=== PATIENT | female | born 1970 | race Caucasian/White ===

== ENCOUNTER 2021-04-21 07:22 | Emergency (ER) | payer MEDICAID ==
[~2021-04-21] VITALS: Ht 170.2 cm; Wt 100.5 kg
[2021-04-21 07:43] VITALS: BP 147/100
[2021-04-21] MEDS ORDERED: LIDOCAINE 1%/EPI 1:200,000/PF 10 ML VIAL SQ ONE (08:30)
[2021-04-21] MEDS ORDERED: SULFAMETHOX/TRIMETH DS 800-160 MG/TABLET PO ONE (09:45)
== END 2021-04-21 10:25 | disposition home or self-care (01) ==
LOC: EMS 07:22
DX: N76.4 Abscess of vulva (principal); E78.00 Pure hypercholesterolemia, unspecified; F17.210 Nicotine dependence, cigarettes, uncomplicated
CPT/HCPCS: 56405; 99284; J3490

== ENCOUNTER 2021-04-30 02:43 | Emergency (ER) | payer MEDICAID ==
[~2021-04-30] VITALS: Ht 170.2 cm; Wt 100.5 kg
[2021-04-30] MEDS ORDERED: DiphenhydrAMINE HCL 50 MG/ML VIAL IVP ONE (07:00)
[2021-04-30] MEDS ORDERED: SODIUM CHLORIDE 0.9% 1,000 ML IV ONE (07:00)
[2021-04-30 07:48] LABS: BASOPHILS % (AUTO) 0.2 % (0.0-2.0); EOSINOPHILS % (AUTO) 7.9 % (1.0-6.0); HEMATOCRIT 36.3 % (36-46); HEMOGLOBIN 12.3 g/dL (12.0-16.0); LYMPHOCYTES % (AUTO) 28.5 % (22.0-44.0); MEAN CORPUSCULAR HEMOGLOBIN 28.9 pg (26.0-34.0); MEAN CORPUSCULAR VOLUME 85 fL (80-100); MONOCYTES # (AUTO) 0.3 K/uL (0.1-1.0); MONOCYTES % (AUTO) 8.5 % (2.0-9.0); NEUTROPHILS % (AUTO) 54.9 % (40.0-70.0); PLATELET COUNT (AUTO) 155 K/uL (150-450); RED BLOOD CELL COUNT(AUTO) 4.28 MIL/uL (4.00-5.20)
[2021-04-30 07:56] LABS: CALCIUM, TOTAL 8.6 mg/dL (8.8-10.5); CREATININE 1.17 mg/dL (0.60-1.30); POTASSIUM 3.8 mmol/L (3.5-5.1)
[2021-04-30 08:03] LABS: ALBUMIN 3.4 g/dL (3.4-5.0); BILIRUBIN,TOTAL 0.2 mg/dL (0.1-1.0); TOTAL PROTEIN, SERUM 6.7 g/dL (6.4-8.2)
[2021-04-30 08:04] LABS: LACTIC ACID 0.8 mmol/L (0.4-2.0)
[2021-04-30 08:36] LABS: COVID AG,FIA SOURCE NASOPHARYNGEAL
[2021-04-30 08:41] LABS: APPEARANCE,URINE CLEAR (CLEAR); BILIRUBIN,URINE NEGATIVE (NEGATIVE); GLUCOSE, URINE (UA) NEGATIVE (NEGATIVE); KETONES,URINE NEGATIVE (NEGATIVE); LEUKOCYTE ESTERASE ,URINE NEGATIVE (NEGATIVE); NITRATE,URINE NEGATIVE (NEGATIVE); OCCULT BLOOD,URINE TRACE (NEGATIVE); PH,URINE 6.5 (5.0-8.0); PROTEIN,URINE NEGATIVE (NEGATIVE)
[2021-04-30 08:51] LABS: BACTERIA,URINE None Seen /HPF (None Seen); RBC,URINE 0-2 /HPF (0-2); WBC,URINE None Seen /HPF (0-5)
[2021-04-30 08:52] LABS: SQUAMOUS EPITHELIAL CELL,UR Few /LPF (None Seen)
[2021-04-30 09:13] LABS: INFLUENZA TYPE A NEGATIVE FOR TYPE A (NEGATIVE)
[2021-04-30 09:14] LABS: INFLUENZA TYPE B NEGATIVE FOR TYPE B (NEGATIVE)
[2021-04-30 09:50] VITALS: BP 126/68
== END 2021-04-30 09:52 | disposition home or self-care (01) ==
LOC: EMS 02:44
DX: T78.40XA Allergy, unspecified, initial encounter (principal); E78.00 Pure hypercholesterolemia, unspecified; F17.210 Nicotine dependence, cigarettes, uncomplicated; Z20.822 Contact with and (suspected) exposure to COVID-19; X58.XXXA Exposure to other specified factors, initial encounter
CPT/HCPCS: 36415; 80053; 81001; 83605; 85025; 87040; 87426; 87804; 96361; 96374; 99285; J1200; J7030

== ENCOUNTER 2021-12-18 19:55 | Emergency (ER) | payer MEDICAID ==
[~2021-12-18] VITALS: Ht 170.2 cm; Wt 100.0 kg
[2021-12-18] MEDS ORDERED: DOXY-354 PO (22:11)
[2021-12-18] MEDS ORDERED: CEPH500C3 PO (22:11)
[2021-12-18] MEDS ORDERED: DOXYCYCLINE HYCLATE 100 MG TABLET PO ONE (22:15)
[2021-12-18] MEDS ORDERED: CEPHALEXIN MONOHYDRATE 500 MG CAPSULE PO ONE (22:15)
[2021-12-18 22:32] VITALS: BP 134/66
== END 2021-12-18 22:32 | disposition home or self-care (01) ==
LOC: EMS 19:59
DX: L02.92 Furuncle, unspecified (principal); E78.00 Pure hypercholesterolemia, unspecified; F17.210 Nicotine dependence, cigarettes, uncomplicated
CPT/HCPCS: 99283

== ENCOUNTER 2023-12-17 18:43 | Emergency (ER) | payer MEDICAID ==
[~2023-12-17] VITALS: Ht 170.2 cm; Wt 105.0 kg
[~2023-12-17 18:43] MED LIST: CEPH-558 PO; DOXY-354 PO
[2023-12-17 18:52] VITALS: BP 132/74; PULSE 115; RESP 16; TEMP 98.1
[2023-12-17] MEDS ORDERED: AMOX1TAB16 PO (21:27)
[2023-12-17] MEDS: AMOX TR/POT CLAV 875 MG/125 MG TABLET PO ONE (21:34)
== END 2023-12-17 20:49 | disposition still patient (30) ==
LOC: EMS 18:45
DX: N76.4 Abscess of vulva (principal); E78.00 Pure hypercholesterolemia, unspecified; G89.29 Other chronic pain; M54.9 Dorsalgia, unspecified; F17.210 Nicotine dependence, cigarettes, uncomplicated; Z98.890 Other specified postprocedural states
CPT/HCPCS: 99283

== ENCOUNTER 2024-05-29 18:41 | Emergency (ER) | payer MEDICAID ==
[~2024-05-29] VITALS: Ht 167.6 cm; Wt 104.0 kg
[~2024-05-29 18:41] MED LIST changes: +AMOX-457 PO
[2024-05-29 18:56] VITALS: TEMP 98.3
[2024-05-29] MEDS ORDERED: CYCL-448 PO (20:25)
[2024-05-29 20:52] VITALS: BP 129/87; PULSE 80; RESP 16; O2SAT 98
== END 2024-05-29 20:52 | disposition home or self-care (01) ==
LOC: EMS 18:41
DX: M54.50 Low back pain, unspecified (principal); F17.210 Nicotine dependence, cigarettes, uncomplicated; E78.00 Pure hypercholesterolemia, unspecified; G89.29 Other chronic pain; Z98.890 Other specified postprocedural states; V49.88XA Car occupant (driver) (passenger) injured in other specified transport accidents, initial encounter; Y93.89 Activity, other specified; Y92.89 Other specified places as the place of occurrence of the external cause; Y99.8 Other external cause status
CPT/HCPCS: 99283; 99406

== ENCOUNTER 2024-11-12 16:08 | Emergency (ER) | payer MEDICAID ==
[~2024-11-12] VITALS: Ht 167.6 cm; Wt 5.0 kg
[~2024-11-12 16:08] MED LIST changes: +CYCL-448 PO
[2024-11-12] MEDS: IBUPROFEN 600 MG TABLET PO ONE (16:39)
[2024-11-12] MEDS: ACETAMINOPHEN 500 MG TABLET PO ONE (16:39)
[2024-11-12 16:54] LABS: COVID AG,FIA SOURCE NASAL SWAB
[2024-11-12 17:15] LABS: BASOPHILS % (AUTO) 0.1 % (0.0-2.0); EOSINOPHILS % (AUTO) 12.3 % (1.0-6.0); HEMATOCRIT 39.8 % (36-46); HEMOGLOBIN 13.3 g/dL (12.0-16.0); LYMPHOCYTES # (AUTO) 0.5 K/uL (1.0-4.8); LYMPHOCYTES % (AUTO) 11.4 % (22.0-44.0); MEAN CORPUSCULAR HEMOGLOBIN 28.5 pg (26.0-34.0); MEAN CORPUSCULAR HGB CONC 33.4 G/dL (31.0-37.0); MEAN CORPUSCULAR VOLUME 85 fL (80-100); MONOCYTES # (AUTO) 0.3 K/uL (0.1-1.0); NEUTROPHILS # (AUTO) 3.3 K/uL (1.8-7.7); NEUTROPHILS % (AUTO) 70.2 % (40.0-70.0); PLATELET COUNT (AUTO) 147 K/uL (150-450); RED BLOOD CELL COUNT(AUTO) 4.66 MIL/uL (4.00-5.20); RED CELL DISTRIBUTION WIDTH 14.8 % (11.5-14.5); WHITE BLOOD COUNT (AUTO) 4.6 K/uL (4.5-11.0)
[2024-11-12 17:17] LABS: ANION GAP 4 mmol/L (8-16); CALCIUM, TOTAL 9.9 mg/dL (8.8-10.5); CARBON DIOXIDE 32 mmol/L (22-29); CHLORIDE 101 mmol/L (98-107); CREATININE 1.01 mg/dL (0.60-1.30); GLOMERULAR FILTR. RATE CALC 57 mL/min (>60); GLUCOSE,RANDOM 114 mg/dL (70-110); POTASSIUM 4.1 mmol/L (3.5-5.1); SODIUM SERUM 137 mmol/L (136-145); UREA NITROGEN, BLOOD 7 mg/dL (7-18)
[2024-11-12 17:26] LABS: ALANINE AMINOTRANSFERASE 27 U/L (12-78); ALBUMIN 3.5 g/dL (3.4-5.0); ALKALINE PHOSPHATASE 97 U/L (46-116); ASPARTATE AMINOTRANSFERASE 28 U/L (15-37); BILIRUBIN,TOTAL 0.4 mg/dL (0.1-1.0); TOTAL PROTEIN, SERUM 7.2 g/dL (6.4-8.2); TROPONIN I-HIGH SENSITIVITY 6 ng/L (<51)
[2024-11-12 17:30] LABS: B-TYPE NATRIURETIC PEPTIDE 60 pg/mL (0-100)
[2024-11-12 17:36] LABS: SARS-COV2 (COVID) ANTIGEN,FIA Negative (Negative)
[2024-11-12] MEDS ORDERED: AZIT-164 PO (18:17)
[2024-11-12] MEDS ORDERED: IBUP-1492 PO (18:19)
[2024-11-12] MEDS ORDERED: ACET-3385 PO (18:19)
[2024-11-12] MEDS: AZITHROMYCIN 500 MG TABLET PO ONE (18:40)
[2024-11-12 18:51] VITALS: BP 118/65; PULSE 89; RESP 16; TEMP 98.5; O2SAT 98
== END 2024-11-12 18:53 | disposition home or self-care (01) ==
LOC: EMS 16:08
DX: J18.9 Pneumonia, unspecified organism (principal); B34.9 Viral infection, unspecified; E78.00 Pure hypercholesterolemia, unspecified; Z20.822 Contact with and (suspected) exposure to COVID-19
CPT/HCPCS: 99285; 71045; 87426; 80048; 80076; 83880; 84484; 85025; 93005; J0456; 36415-L1; 36415-TC

== ENCOUNTER 2025-05-29 00:07 | Emergency (ER) | payer MEDICAID ==
[~2025-05-29] VITALS: Ht 170.2 cm; Wt 90.9 kg
[~2025-05-29 00:07] MED LIST changes: +ACET-3385 PO; -AMOX-457 PO; +AZIT-164 PO; -CEPH-558 PO; -CYCL-448 PO; -DOXY-354 PO; +IBUP-1492 PO
[2025-05-29 00:44] LABS: PLATELET COUNT (AUTO) 384 K/uL (150-450); RED BLOOD CELL COUNT(AUTO) 4.85 MIL/uL (4.00-5.20); RED CELL DISTRIBUTION WIDTH 14.4 % (11.5-14.5); WHITE BLOOD COUNT (AUTO) 9.4 K/uL (4.5-11.0)
[2025-05-29 00:53] LABS: CALCIUM, TOTAL 10.7 mg/dL (8.8-10.5); CREATININE 1.13 mg/dL (0.60-1.30); GLOMERULAR FILTR. RATE CALC 50.0 mL/min (>60); GLUCOSE,RANDOM 132.0 mg/dL (70-110); SODIUM SERUM 137.0 mmol/L (136-145); UREA NITROGEN, BLOOD 9.0 mg/dL (7-18)
[2025-05-29] MEDS: MORPHINE SULFATE 4 MG/ML SYRINGE IVP ONE (02:58)
[2025-05-29] MEDS: SODIUM CHLORIDE 0.9% 1,000 ML IV ONE (02:59)
[2025-05-29 03:55] VITALS: TEMP 98
[2025-05-29 04:00] LABS: LACTIC ACID 1.9 mmol/L (0.4-2.0)
[2025-05-29] MEDS: ONDANSETRON HCL 4 MG/2 ML VIAL IVP ONE (04:37)
[2025-05-29 05:55] VITALS: BP 141/79; PULSE 87; RESP 17; O2SAT 97
[2025-05-29 06:23] LABS: APPEARANCE,URINE CLEAR (CLEAR); GLUCOSE, URINE (UA) NEGATIVE (NEGATIVE); LEUKOCYTE ESTERASE ,URINE NEGATIVE (NEGATIVE); NITRATE,URINE NEGATIVE (NEGATIVE); OCCULT BLOOD,URINE NEGATIVE (NEGATIVE); SPECIFIC GRAVITIY, URINE 1.008 (1.003-1.030)
== END 2025-05-29 08:43 | disposition admitted as inpatient to this hospital (09) ==
LOC: EMS 00:08
DX: F41.9 Anxiety disorder, unspecified (principal); R06.02 Shortness of breath; T36.8X5A Adverse effect of other systemic antibiotics, initial encounter; T36.1X5A Adverse effect of cephalosporins and other beta-lactam antibiotics, initial encounter; E78.00 Pure hypercholesterolemia, unspecified; Z98.890 Other specified postprocedural states; Z79.899 Other long term (current) drug therapy; Y92.89 Other specified places as the place of occurrence of the external cause
CPT/HCPCS: 99285; 96374; 96361; 96375; 80048; 81003; 83605; 85025; 87040; 72100; 74018; 93005; 96376; 36415; J1171; J2270; J2405; J7030